=== PATIENT | female | born 1985 | race Caucasian/White ===

== ENCOUNTER → 2020-07-08 13:08 | Outpatient (CLI) | payer MEDICAID ==
[~2020-07-08 13:08] MED LIST: MOTRIN600 MG PO; PERCOCET 5/3251 TA1 PO; PRENATAL COMPLE1 TAB PO
== END | disposition home or self-care (01) ==
LOC: D.US 10:00
PROVIDERS: ATTEND Student in an Organized Health Care Education/Training Program
DX: N63.10 Unspecified lump in the right breast, unspecified quadrant (principal)

== ENCOUNTER 2020-08-05 00:06 | Emergency (ER) | payer MEDICAID ==
[~2020-08-05] VITALS: Ht 160 cm; Wt 62.7 kg
[2020-08-05 00:09] VITALS: BP 128/75; Ht 160 cm; Wt 62.7 kg
[2020-08-05 00:32] LABS: BASOPHILS 0.2 % (0-2); EOSINOPHILS 1.6 % (0-7); HEMATOCRIT 37.9 % (36.0-48.0); IMMATURE GRANULOCYTES 0.2 % (0-5); LYMPHOCYTE ABS# 3.25 10x3/uL (1.18-3.74); LYMPHOCYTES 32.1 % (15-50); MCH 32.3 pg (26.0-34.0); MCHC 34.3 g/dL (31.0-37.0); MCV 94.3 fL (80.0-100.0); MEAN PLATELET VOLUME 9.1 fL (7.4-10.4); MONOCYTES 5.2 % (2-11); NEUTROPHIL ABS# 6.14 10x3/uL (1.56-6.13); NEUTROPHILS 60.7 % (40-80); RBC 4.02 10x6/uL (4.00-5.40); RDW 12.2 % (11.5-14.5); WBC 10.1 10x3/uL (4.8-10.8)
[2020-08-05 00:33] LABS: PLATELET COUNT 270 10x3/uL (130-400)
[2020-08-05 00:49] LABS: CALC OSMOLALITY 267 mosm/kg (275-300); CALCIUM 8.6 mg/dL (8.5-10.1); CARBON DIOXIDE 22.6 mmol/L (21.0-32.0); CHLORIDE - SERUM 101 mmol/L (98-107); CREATININE - SERUM 0.7 mg/dL (0.6-1.3); GLUCOSE 98 mg/dL (74-106); POTASSIUM - SERUM 3.3 mmol/L (3.5-5.1); SODIUM 135 mmol/L (136-145); UREA NITROGEN 8 mg/dL (7-18); eGFR NON AFRICAN AMERICAN > 90 mL/min (90-120)
[2020-08-05 01:08] LABS: ALBUMIN 3.3 g/dL (3.4-5.0); ALKALINE PHOSPHATASE 73 U/L (30-120); ALT (SGPT) 14 U/L (10-68); BILIRUBIN - TOTAL 0.21 mg/dL (0.2-1.3); HCG - QUANTITATIVE (MATERNAL) 36794 mIU/mL; PROTEIN - SERUM 7.3 g/dL (6.4-8.2)
== END 2020-08-05 03:28 | disposition home or self-care (01) ==
LOC: D.ER 00:06
PROVIDERS: Family Medicine
DX: O20.0 Threatened abortion (principal); Z3A.13 13 weeks gestation of pregnancy